=== PATIENT | female | born 1950 | race Hispanic/Latino ===

== ENCOUNTER → 2021-08-27 | Outpatient (CLI) | payer MEDICARE ==
--- NOTE | 2021-08-27 10:27 | DIREP ---
PROCEDURE:CT ABDOMEN/PELVIS W/O CONTRAST COMPARISON:None. INDICATIONS:N34.1 URETHRITIS TECHNIQUE:Axial images were created through the abdomen and pelvis without intravenous contrast material. No oral contrast was administered. Sagittal and coronal reconstructions were performed from source images. FINDINGS:Evaluation of the soft tissues is limited without intravenous contrast. LUNG BASES:Normal. No visible pulmonary or pleural disease. LIVER:Mildly nodular hepatic contour. No focal lesion noted. BILIARY:Cholelithiasis. No gallbladder wall thickening or pericholecystic fluid. PANCREAS:Normal. No lesion, fluid collection, ductal dilatation, or atrophy. SPLEEN:Splenomegaly at 14.4 cm. ADRENALS:Normal. No mass or enlargement. URINARY TRACT:Normal. No focal lesions or hydronephrosis. AORTA/VASCULAR:There are aortic atherosclerotic calcifications present. No aneurysm. RETROPERITONEUM:Normal. No mass or adenopathy. BOWEL/MESENTERY:There is mild colonic diverticulosis without evidence for diverticulitis. There is no intestinal obstruction, free fluid, free air or mesenteric inflammatory changes. The appendix is normal in caliber. ABDOMINAL WALL:Normal. No mass or hernia. PELVIC ORGANS:The uterus is surgically absent. No visible mass. BONES:Mild degenerative changes. No acute bony abnormality. OTHER:Negative. CONCLUSION:1. Cholelithiasis without CT evidence of cholecystitis. 2. Mild colonic diverticulosis. 3. Nodular hepatic contour consistent with cirrhosis in the proper clinical setting, with splenomegaly. Dictated by: Kalyani Del Cid M.D. on 08/27/2021 at 10:20 AM
== END | disposition home or self-care (01) ==
LOC: RAD 09:16
PROVIDERS: ATTEND Urology
DX: K80.20 Calculus of gallbladder without cholecystitis without obstruction (principal); K57.30 Diverticulosis of large intestine without perforation or abscess without bleeding; M47.819 Spondylosis without myelopathy or radiculopathy, site unspecified; R16.1 Splenomegaly, not elsewhere classified
CPT/HCPCS: 74176